=== PATIENT | female | born 1995 | race Two or more races ===

== ENCOUNTER 2023-07-10 09:34 | Emergency (ER) | payer OTHER ==
[~2023-07-10] VITALS: Ht 160 cm; Wt 47.2 kg
[2023-07-10] MEDS ORDERED: DIPHENHYDRAMINE HCL 50 MG/ML VIAL 1ML IM ONE (10:30)
[2023-07-10] MEDS ORDERED: TRAMADOL HCL 50 MG TABLET PO ONE (10:30)
[2023-07-10] MEDS ORDERED: METHYLPREDNISOLONE SOD SUCC 125 MG VIAL IM ONE (10:30)
[2023-07-10 10:59] LABS: HEMATOCRIT 38.1 % (36.0-45.00); HEMOGLOBIN 12.9 g/dL (12.0-15.00); MEAN CELL VOLUME 89.8 fL (80.00-100.00); MEAN CORPUSCULAR HEMOGLOBIN 30.5 pg (27.00-32.0); MEAN CORPUSCULAR HGB CONC 33.9 g/dl (32.0-36.0); PLATELET COUNT 244 K/uL (150-450); RED BLOOD COUNT 4.25 M/uL (4.00-6.00); RED CELL DISTRIBUTION WIDTH 14.2 % (11.5-14.5)
== END 2023-07-10 14:46 | disposition home or self-care (01) ==
LOC: ER 09:35
PROVIDERS: General Practice
DX: R10.2 Pelvic and perineal pain (principal); R18.8 Other ascites; Z91.013 Allergy to seafood